=== PATIENT | female | born 1970 | race Caucasian/White ===

== ENCOUNTER 2017-04-14 05:29 | Outpatient (CLI) | payer BC ==
[~2017-04-14] VITALS: Ht 154.9 cm; Wt 82.1 kg
[~2017-04-14 05:29] MED LIST: GLYB5TAB6 PO; LEVO112C2 PO; LOSA1TAB20 PO; LOVA10TA PO; METF1000 PO; OMEP20CA12 PO
[2017-04-14] MEDS ORDERED: BENZ100C23 PO (12:17)
[2017-04-14] MEDS ORDERED: FLUO20CA25 PO (12:17)
[2017-04-14] MEDS ORDERED: CYCL10TA9 PO (12:17)
[2017-04-14] MEDS ORDERED: PIOG30TA26 PO (12:17)
[2017-04-14] MEDS ORDERED: INSU100I29 SQ (12:17)
[2017-04-14] MEDS ORDERED: MELO15TA39 PO (12:17)
== END 2017-04-14 12:17 ==
LOC: PREOP 05:29
PROVIDERS: ATTEND Surgery
DX: Z01.818 Encounter for other preprocedural examination (principal); D64.9 Anemia, unspecified

== ENCOUNTER 2017-04-18 07:08 | Day surgery (SDC) | payer BC ==
[~2017-04-18] VITALS: Ht 154.9 cm; Wt 82.1 kg
[~2017-04-18 07:08] MED LIST changes: +BENZ100C23 PO; +CYCL10TA9 PO; +FLUO20CA25 PO; +INSU100I29 SQ; +MELO15TA39 PO; +PIOG30TA26 PO
[2017-04-18] MEDS ORDERED: LACTATED RINGERS 1,000 ML IV STA (07:16)
[2017-04-18 07:24] VITALS: BP 128/90
[2017-04-18] MEDS ORDERED: LACTATED RINGERS 1,000 ML IV ONE (07:25)
[2017-04-18] MEDS ORDERED: HURRICAINE EXT TUBE (BENZOCAINE) XX PRN (07:30)
[2017-04-18] MEDS ORDERED: INDO50CA PO (07:44)
[2017-04-18] MEDS ORDERED: NAPR-1033 PO (07:44)
[2017-04-18] MEDS ORDERED: PROPOFOL INJECTION 0 ML IV ONE (07:45)
[2017-04-18] MEDS ORDERED: LORA10TA7 PO (07:45)
[2017-04-18] MEDS ORDERED: MIDAZOLAM 2 MG/2 ML (VERSED) VIAL ONE (07:46)
[2017-04-18] MEDS ORDERED: HURRICAINE EXT TUBE (BENZOCAINE) ONE (08:10)
[2017-04-18] MEDS ORDERED: PROPOFOL INJECTION 50 ML IV ONE (08:22)
--- NOTE | 2017-04-18 08:51 | Progress Note-Post Operative ---
Post-Operative Progess Note Surgeon (s)/Computer Systems Security Administrator (s) Surgeon CARLEY EAST DO Computer Systems Security Administrator: na Pre-Operative Diagnosis gerd screening colonoscopy Post-Operative Diagnosis gastritis, small hiatal hernia, normal colon Procedure & Operative Findings Date of Procedure 04/18/17 Procedure Performed/Findings egd c biopsies, colonoscopy Anesthesia Type per [facility] Estimated Blood Loss Estimated blood loss (mL): none Specimens/Packing Specimens Removed antrum, ge junction CARLEY EAST DO Apr 18, 2017 8:50 am
[2017-04-18 09:00] VITALS: BP 128/86
[2017-04-18] MEDS ORDERED: PANT40TA2 PO (09:03)
[2017-04-18] MEDS ORDERED: SUCR1TAB36 PO (09:03)
--- NOTE | 2017-04-18 09:04 | Discharge Inst-Simple/Standard ---
Discharge Inst-Standard Discharge Medications New, Converted or Re-Newed RX: RX on Chart Patient Instructions/Follow Up Plan of Care/Instructions/FU: Take medication as directed. Follow up with Dr. Reardon in 2 weeks Activity as Tolerated: Yes Discharge Diet: No Restrictions GISELE KNOX APRN Apr 18, 2017 09:04
[2017-04-18 09:29] VITALS: BP 127/70
[2017-04-18 09:39] VITALS: BP 127/70
--- OUTSIDE RECORDS SUMMARY | 2017-04-18 19:26 | XMS REPORT ---
Author Author LIZZETTE BOLAND [facility] Address [address] [place] [address] Care Team Providers Care Lcpc Name Role Phone LIZZETTE BOLAND Unavailable PROBLEMS Type Condition ICD9-CM Code [id number] Code Onset Dates Condition Status SNOMED Code Problem Neuropathy G62.9 Active 361592554 Problem Mild intermittent asthma without complication J45.20 Active 246079909 Problem Insomnia G47.00 Active 150341832 Assessment Onychia of toe, left L03.032 Jun, Active 688062033 Assessment Type 2 diabetes mellitus without complication E11.9 Jun, Active 37263015 Problem Mixed hyperlipidemia E78.2 Active 782947853 Problem Dysthymia F34.1 Active 91592941 Problem Type 2 diabetes mellitus without complication E11.9 Active 31164765 Problem Essential hypertension I10 Active 48571671 Problem Gastroesophageal reflux disease without esophagitis K21.9 Active 772676493 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 Active 647695820 Problem Acquired hypothyroidism E03.9 Active 967890051 ALLERGIES Substance Reaction Event Type Date Status Victoza Unknown Drug Allergy Jun, Active Benazepril HCl Unknown Drug Allergy Jun, Active SOCIAL HISTORY No smoking Hx information available PLAN OF CARE VITAL SIGNS Height 61 in 2016-06-21 Weight 174.3 lbs 2016-06-21 Heart Rate 64 bpm 2016-06-21 Respiratory Rate 20 2016-06-21 BMI 32.93 kg/m2 2016-06-21 Blood pressure systolic 118 mmHg 2016-06-21 Blood pressure diastolic 86 mmHg 2016-06-21 MEDICATIONS Medication Instructions Dosage Frequency Start Date End Date Duration Status Metformin HCl 1000 MG Orally Twice a day 1 tablet with meals 12h 30 Active Loratadine 10 mg take 1 tablet by Oral route 1 time per day take at hs Active Lovastatin 10 MG Orally Once a day TAKE ONE TABLET BY MOUTH DAILY 24h 30 Active Losartan Potassium-HCTZ 50-12.5 MG Orally Once a day 1 tablet 24h Active Loratadine 10 MG TAKE ONE TABLET BY MOUTH ONCE DAILY AT BEDTIME 30 Active Levothyroxine Sodium 112 MCG Orally Once a day 1 tablet 24h 30 Active Omeprazole 20 MG Orally Once a day TAKE ONE CAPSULE BY MOUTH TWICE DAILY BEFORE A MEAL 24h 30 Active Test strips Test Strips Active Fluoxetine HCl 20 mg Orally Once a day 1 capsule in the morning 24h 30 day(s) Active ProAir HFA 108 (90 Base) MCG/ACT Inhalation PRN 2 puffs as needed 07 days Active Levemir FlexTouch 100 UNIT/ML Subcutaneous Once a day 27 units 24h Active GlyBURIDE 5 MG TAKE TWO TABLETS BY MOUTH TWICE DAILY BEFORE MEALS 30 Active RESULTS Name Result Date Reference Range A1C (IN HOUSE) 2016-06-21 A1C IN HOUSE 7.8 4.3 - 5.6 % Previous A1c 9.2 Lot [id number] Exp date 04/2018 TSH 2016-06-21 TSH 3.210 0.450-4.500 MICROALBUMIN/CREATININE RATIO, URINE 2016-06-21 Creatinine, Urine 41.4 Not Estab. Microalbumin, Urine <3.0 Not Estab. Microalb/Creat Ratio <7.2 0.0-30.0 LIPID PANEL 2016-06-21 Cholesterol, Total 186 100-199 Triglycerides 231 0-149 HDL Cholesterol 47 >39 VLDL Cholesterol William 46 5-40 LDL Cholesterol Calc 93 0-99 CMP 2016-06-21 Glucose, Serum 99 65-99 BUN 12 6-24 Creatinine, Serum 0.62 0.57-1.00 eGFR If NonAfricn Am 108 >59 eGFR If Africn Am 125 >59 BUN/Creatinine Ratio 19 9-23 Sodium, Serum 138 134-144 Potassium, Serum 4.6 3.5-5.2 Chloride, Serum 96 97-108 Carbon Dioxide, Total 24 18-29 Calcium, Serum 9.6 8.7-10.2 Protein, Total, Serum 6.7 6.0-8.5 Albumin, Serum 4.4 3.5-5.5 Globulin, Total 2.3 1.5-4.5 A/G Ratio 1.9 1.1-2.5 Bilirubin, Total 0.2 0.0-1.2 Alkaline Phosphatase, S 51 39-117 AST (SGOT) 22 0-40 ALT (SGPT) 29 0-32 MICROALBUMIN, URINE (IN HOUSE) 2016-06-21 MICROALBUMIN ABNORMAL Lot # [id number] Exp date May 2017 Clarity cloudy Color light yellow ALB 30 CRE 50 A:C (IN HOUSE) 30-300 Control normal Control abnormal Lot # [id number] Exp date Jun 2016 PROCEDURES Procedure Date Ordered Related Diagnosis Body Site GLYCATED HEMOGLOBIN TEST Jun 21, 2016 MICROALBUMIN, SEMIQUANT Jun 21, 2016 MICROALBUMIN, QUANTITATIVE Jun 21, 2016 ASSAY OF URINE CREATININE Jun 21, 2016 Office Visit, Est Pt., Level 4 Jun 21, 2016 COMPREHEN METABOLIC PANEL Jun 21, 2016 ASSAY THYROID STIM HORMONE Jun 21, 2016 VENIPUNCT, ROUTINE* Jun 21, 2016 LIPID PANEL Jun 21, 2016 IMMUNIZATIONS No Known Immunizations
--- OUTSIDE RECORDS SUMMARY | 2017-04-18 19:26 | XMS REPORT ---
Author Author LIZZETTE BOLAND Organization e[employer] Address Unknown Phone Unavailable Care Team Providers Care Garnisher Name Role Phone LIZZETTE BOLAND CP Unavailable Allergies No Known Allergies Problems Problem Type Condition Code Onset Dates Condition Status Problem Mixed hyperlipidemia E78.2 Active Problem Insomnia G47.00 Active Problem Neuropathy G62.9 Active Problem Type 2 diabetes mellitus without complication E11.9 Active Problem terminal worker current use of insulin Z79.4 Active Problem Dysthymia F34.1 Active Problem Gastroesophageal reflux disease without esophagitis K21.9 Active Problem Mild intermittent asthma without complication J45.20 Active Problem Acquired hypothyroidism E03.9 Active Problem Essential hypertension I10 Active Medications Medication Code System Code Instructions Start Date End Date Status Dosage GlyBURIDE [facility] [address]-17 5 mg TAKE TWO TABLETS BY MOUTH TWICE DAILY BEFORE MEALS Results No Known Results Summary Purpose eClinicalWorks Submission
--- OUTSIDE RECORDS SUMMARY | 2017-04-18 19:26 | XMS REPORT ---
Author Author LIZZETTE BOLAND [facility] eClinicalWorks Address Unknown Phone Unavailable Care Team Providers Care Meat Supervisor Name Role Phone LIZZETTE BOLAND CP Unavailable Allergies, Adverse Reactions, Alerts Substance Reaction Event Type Victoza Info Not Available Drug Allergy Benazepril HCl Info Not Available Drug Allergy Problems Problem Type Condition ICD-9 Code Onset Dates Condition Status Problem Screening examination for pulmonary tuberculosis V74.1 Active Problem Asthma, unspecified, unspecified status 493.90 Active Problem Insomnia, unspecified 780.52 Active Problem Influenza with other respiratory manifestations 487.1 Active Problem Acute bronchitis 466.0 Active Problem Hypertension 997.91 Active Problem Dermatophytosis of nail 110.1 Active Problem Essential hypertension, benign 401.1 Active Problem Unspecified hypothyroidism 244.9 Active Problem Diabetes mellitus without mention of complication, type II or unspecified type, not stated as uncontrolled 250.00 Active Problem Diabetes mellitus without mention of complication, type II or unspecified type, uncontrolled 250.02 Active Problem Screening for hypertension V81.1 Active Assessment Bronchitis 490 Active Problem Esophageal reflux 530.81 Active Problem Acute upper respiratory infections of unspecified site 465.9 Active Problem Unspecified hereditary and idiopathic peripheral neuropathy 356.9 Active Medications Medication Code System Code Instructions Start Date End Date Status Dosage ProAir HFA [facility] [address]-76 108 (90 Base) MCG/ACT Inhalation 3 times a day Jun 25, 2015 2 puffs as needed Levothyroxine Sodium [facility] [address]-48 112 MCG Orally Once a day 1 tablet Omeprazole [facility] 54740273325 20 MG TAKE ONE CAPSULE BY MOUTH TWICE DAILY BEFORE A MEAL GlyBURIDE [facility] 53210747074 5 MG TAKE TWO TABLETS BY MOUTH TWICE DAILY BEFORE MEALS Levemir FlexTouch [facility] [address]-34 100 UNIT/ML Subcutaneous Once a day 13 units Metformin HCl [facility] [address]-26 1000 MG Orally Twice a day 1 tablet with meals Hydrocodone-Acetaminophen [facility] [address]-84 7.5-325 MG Orally every 6 hrs prn 1 tablet as needed Losartan Potassium-HCTZ [facility] 52241300731 50-12.5 MG TAKE ONE TABLET BY MOUTH TWICE DAILY Levaquin [facility] [address]-72 500 MG Orally Once a day Jun 25, 2015Jun 1 tablet Lovastatin [facility] 32338922705 10 MG TAKE ONE TABLET BY MOUTH DAILY Loratadine [facility] [address]-79 10 mg Nov 28, 2014 take 1 tablet by Oral route 1 time per day take at hs Test strips NDC 0 Test Strips not defined Procedures Procedure Coding System Code Date Office Visit, Est Pt., Level 3 CPT-4 36837 Jun 25, 2015 MEASURE BLOOD OXYGEN LEVEL CPT-4 31372 Jun 25, 2015 Vital Signs Date/Time: Jun 25, 2015 Temperature 98.4 F Weight 172.9 lbs Height 61 in Oximetry 100 % Blood Pressure Diastolic 78 mmHg Blood Pressure Systolic 118 mmHg Cardiac Monitoring Heart Rate 90 bpm BMI 32.67 Index Results No Known Results Summary Purpose eClinicalWorks Submission
--- OUTSIDE RECORDS SUMMARY | 2017-04-18 19:27 | XMS REPORT ---
Author Author LIZZETTE BOLAND [facility] Address [address] [place] [address] Care Team Providers Care Economic Development Specialist Name Role Phone LIZZETTE BOLAND Unavailable PROBLEMS Type Condition ICD9-CM Code [id number] Code Onset Dates Condition Status SNOMED Code Problem Neuropathy G62.9 Active 738970101 Problem Mild intermittent asthma without complication J45.20 Active 648521155 Problem Insomnia G47.00 Active 586074214 Problem Mixed hyperlipidemia E78.2 Active 708645115 Problem Dysthymia F34.1 Active 49924186 Problem Type 2 diabetes mellitus without complication E11.9 Active 09704238 Problem Essential hypertension I10 Active 21587536 Problem Gastroesophageal reflux disease without esophagitis K21.9 Active 758721828 Problem care home current use of insulin Z79.4 Active 295623108 Problem Acquired hypothyroidism E03.9 Active 943226379 ALLERGIES No Known Allergies SOCIAL HISTORY No smoking Hx information available PLAN OF CARE VITAL SIGNS MEDICATIONS No Known Medications RESULTS No Results PROCEDURES No Known procedures IMMUNIZATIONS No Known Immunizations
--- OUTSIDE RECORDS SUMMARY | 2017-04-18 19:27 | XMS REPORT ---
Author Author LIZZETTE BOLAND [facility] eClinicalWorks Address Unknown Phone Unavailable Care Team Providers Care Road Roller Operator Hot Mix Name Role Phone LIZZETTE BOLAND CP Unavailable Allergies, Adverse Reactions, Alerts Substance Reaction Event Type Victoza Info Not Available Drug Allergy Benazepril HCl Info Not Available Drug Allergy Problems Problem Type Condition Code Onset Dates Condition Status Assessment Type 2 diabetes mellitus without complication E11.9 Active Problem Neuropathy G62.9 Active Problem Mixed hyperlipidemia E78.2 Active Problem terminal carman current use of insulin Z79.4 Active Problem Acquired hypothyroidism E03.9 Active Problem Type 2 diabetes mellitus without complication E11.9 Active Problem Mild intermittent asthma without complication J45.20 Active Problem Insomnia G47.00 Active Problem Essential hypertension I10 Active Problem Gastroesophageal reflux disease without esophagitis K21.9 Active Assessment Upper respiratory infection J06.9 Active Assessment Mixed hyperlipidemia E78.2 Active Assessment Gastroesophageal reflux disease without esophagitis K21.9 Active Assessment Essential hypertension I10 Active Assessment Neuropathy G62.9 Active Assessment Acquired hypothyroidism E03.9 Active Assessment Mild intermittent asthma without complication J45.20 Active Assessment [facility] current use of insulin Z79.4 Active Medications Medication Code System Code Instructions Start Date End Date Status Dosage ProAir HFA [facility] [address]-43 108 (90 Base) MCG/ACT Inhalation PRN Jun 25, 2015 2 puffs as needed Azithromycin [facility] [address]-57 250 MG Orally Once a day Aug 04, 2015 Aug 09, 2015 2 tablets on the first day, then 1 tablet daily for 4 days Lovastatin [facility] [address]-76 10 MG Orally Once a day TAKE ONE TABLET BY MOUTH DAILY Test strips [facility] 0 Test Strips not defined Metformin HCl [facility] [address]-29 1000 MG Orally Twice a day 1 tablet with meals Levothyroxine Sodium [facility] [address]-41 112 MCG Orally Once a day 1 tablet Loratadine [facility] [address]-26 10 mg Nov 28, 2014 take 1 tablet by Oral route 1 time per day take at hs Omeprazole [facility] [address]-79 20 MG Orally Once a day TAKE ONE CAPSULE BY MOUTH TWICE DAILY BEFORE A MEAL GlyBURIDE [facility] [address]-73 5 MG TAKE TWO TABLETS BY MOUTH TWICE DAILY BEFORE MEALS Levemir FlexTouch [facility] [address]-95 100 UNIT/ML Subcutaneous Once a day 20 units Losartan Potassium-HCTZ [facility] [address]-28 50-12.5 MG Orally Once a day 1 tablet Procedures Procedure Coding System Code Date LIPID PANEL CPT-4 48981 Aug 04, 2015 COMPREHEN METABOLIC PANEL CPT-4 95119 Aug 04, 2015 GLYCATED HEMOGLOBIN TEST CPT-4 95354 Aug 04, 2015 Office Visit, Est Pt., Level 4 CPT-4 07152 Aug 04, 2015 ASSAY THYROID STIM HORMONE CPT-4 08118 Aug 04, 2015 VENIPUNCT, ROUTINE* CPT-4 30075 Aug 04, 2015 Vital Signs Date/Time: Aug 04, 2015 Temperature 97.0 F Weight 176.1 lbs Height 61 in BMI 33.27 Index Blood Pressure Diastolic 84 mmHg Blood Pressure Systolic 122 mmHg Cardiac Monitoring Heart Rate 88 bpm Results Name Result Date Reference Range Unit Abnormality Flag A1C (IN HOUSE) Summary Purpose eClinicalWorks Submission
--- OUTSIDE RECORDS SUMMARY | 2017-04-18 19:27 | XMS REPORT ---
Author Author LIZZETTE BOLAND [facility] eClinicalWorks Address Unknown Phone Unavailable Care Team Providers Care Motor Vehicle Representative Name Role Phone LIZZETTE BOLAND CP Unavailable Allergies, Adverse Reactions, Alerts Substance Reaction Event Type Victoza Info Not Available Drug Allergy Benazepril HCl Info Not Available Drug Allergy Problems Problem Type Condition Code Onset Dates Condition Status Problem Mixed hyperlipidemia E78.2 Active Problem Insomnia G47.00 Active Problem Neuropathy G62.9 Active Assessment Upper respiratory tract infection, unspecified type J06.9 Active Assessment Chills with fever R50.9 Active Problem Type 2 diabetes mellitus without complication E11.9 Active Problem [facility] current use of insulin Z79.4 Active Problem Dysthymia F34.1 Active Problem Gastroesophageal reflux disease without esophagitis K21.9 Active Problem Mild intermittent asthma without complication J45.20 Active Problem Acquired hypothyroidism E03.9 Active Problem Essential hypertension I10 Active Medications Medication Code System Code Instructions Start Date End Date Status Dosage Augmentin [facility] [address]-84 875-125 MG Orally every 12 hrs Aug 24, 2016 Sep 03, 2016 1 tablet Levemir FlexTouch [facility] [address]-69 100 UNIT/ML Subcutaneous Once a day 27 units Losartan Potassium-HCTZ [facility] 67361276250 50-12.5 MG Orally 2 times a day 1 tablet Omeprazole [facility] [address]-35 20 MG Orally Once a day TAKE ONE CAPSULE BY MOUTH TWICE DAILY BEFORE A MEAL Lovastatin [facility] [address]-26 10 MG Orally Once a day TAKE ONE TABLET BY MOUTH DAILY Fluoxetine HCl [facility] [address]-95 20 mg Orally Once a day 1 capsule in the morning GlyBURIDE [facility] [address]-99 5 MG TAKE TWO TABLETS BY MOUTH TWICE DAILY BEFORE MEALS Loratadine [facility] [address]-15 10 MG TAKE ONE TABLET BY MOUTH AT BEDTIME Test strips NDC 0 Test Strips not defined Levothyroxine Sodium [facility] [address]-70 112 MCG Orally Once a day 1 tablet ProAir HFA [facility] [address]-34 108 (90 Base) MCG/ACT Inhalation PRN 2 puffs as needed Metformin HCl [facility] [address]-73 1000 MG Orally Twice a day 1 tablet with meals Procedures Procedure Coding System Code Date Office Visit, Est Pt., Level 3 CPT-4 94165 Aug 24, 2016 INFLUENZA ASSAY W/OPTIC CPT-4 46775 Aug 24, 2016 Vital Signs Date/Time: Aug 24, 2016 Cardiac Monitoring Heart Rate 66 bpm Weight 167.7 lbs Height 61 in BMI 31.68 Index Blood Pressure Diastolic 78 mmHg Blood Pressure Systolic 122 mmHg Results Name Result Date Reference Range Unit Abnormality Flag INFLUENZA A & B (IN HOUSE) ----Exp date [id number] ----INFLUENZA A Negative [id number] ----INFLUENZA B Negative [id number] ----Control + [id number] ----Lot # [id number] Summary Purpose eClinicalWorks Submission
--- OUTSIDE RECORDS SUMMARY | 2017-04-18 19:27 | XMS REPORT ---
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
--- OUTSIDE RECORDS SUMMARY | 2017-04-18 19:27 | XMS REPORT ---
Author Author LIZZETTE BOLAND Organization [employer] Address Unknown Phone Unavailable Care Team Providers Care Admissions Specialist Name Role Phone LIZZETTE BOLAND CP Unavailable Allergies No Known Allergies Problems Problem Type Condition Code Onset Dates Condition Status Problem Mixed hyperlipidemia E78.2 Active Problem Insomnia G47.00 Active Problem Neuropathy G62.9 Active Problem Type 2 diabetes mellitus without complication E11.9 Active Problem salvage determiner current use of insulin Z79.4 Active Problem Dysthymia F34.1 Active Problem Gastroesophageal reflux disease without esophagitis K21.9 Active Problem Mild intermittent asthma without complication J45.20 Active Problem Acquired hypothyroidism E03.9 Active Problem Essential hypertension I10 Active Medications No Known Medications Results No Known Results Summary Purpose eClinicalWorks Submission
--- OUTSIDE RECORDS SUMMARY | 2017-04-18 19:27 | XMS REPORT | Continuity of Care Document ---
Author Author [facility] Address Unknown Phone Unavailable Allergies Active Description Code Type Severity Reaction Onset Reported/Identified Relationship to Patient Clinical Status Yes benazepril 10 mg tablet Drug Allergy 12/25/2012 Yes benazepril 10 mg tablet Drug Allergy N/A N/A 12/25/2012 Yes Victoza 3-Asa 0.6 mg/0.1 mL (18 mg/3 mL) pen injector Drug Allergy N/A N/A 07/31/2014 Yes No Known Drug Allergies [id number] Drug Allergy Unknown N/ A 05/03/2015 Medications Problems Date Dx Coded Attending Type Code Diagnosis Diagnosed By 08/15/2012 GALE RAI MD 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 08/15/2012 GALE RAI MD 244.9 HYPOTHYROIDISM 08/15/2012 GALE RAI MD 250.00 DIABETES MELLITUS TYPE 2 - UNCOMPLICATED, CONTROLLED 08/15/2012 GALE RAI MD 401.1 ESSENTIAL HYPERTENSION BENIGN 08/15/2012 GALE RAI MD 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 08/15/2012 GALE RAI MD 244.9 HYPOTHYROIDISM 08/15/2012 GALE RAI MD 250.00 DIABETES MELLITUS TYPE 2 - UNCOMPLICATED, CONTROLLED 08/15/2012 GALE RAI MD 401.1 ESSENTIAL HYPERTENSION BENIGN 08/15/2012 CHENTE PEREZ MD 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 08/15/2012 CHENTE PEREZ MD 244.9 HYPOTHYROIDISM 08/15/2012 CHENTE PEREZ MD 250.00 DIABETES MELLITUS TYPE 2 - UNCOMPLICATED, CONTROLLED 08/15/2012 CHENTE PEREZ MD A 401.1 ESSENTIAL HYPERTENSION BENIGN 08/15/2012 ASHOK BUCIO MD 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 08/15/2012 ASHOK BUCIO MD 244.9 HYPOTHYROIDISM 08/15/2012 ASHOK BUCIO MD 250.00 DIABETES MELLITUS TYPE 2 - UNCOMPLICATED, CONTROLLED 08/15/2012 ASHOK BUCIO MD 401.1 ESSENTIAL HYPERTENSION BENIGN 08/15/2012 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 08/15/2012 244.9 HYPOTHYROIDISM 08/15/2012 250.00 DIABETES MELLITUS TYPE 2 - UNCOMPLICATED, CONTROLLED 08/15/2012 401.1 ESSENTIAL HYPERTENSION BENIGN 08/15/2012 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 08/15/2012 244.9 HYPOTHYROIDISM 08/15/2012 250.00 DIABETES MELLITUS TYPE 2 - UNCOMPLICATED, CONTROLLED 08/15/2012 401.1 ESSENTIAL HYPERTENSION BENIGN 08/15/2012 ALEKSANDR FUENTES APRNNDA S 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 08/15/2012 ALEKSANDR FUENTES APRNNDA S 244.9 HYPOTHYROIDISM 08/15/2012 ALEKSANDR FUENTES APRNNDA S 250.00 DIABETES MELLITUS TYPE 2 - UNCOMPLICATED, CONTROLLED 08/15/2012 ALEKSANDR FUENTES APRNNDA S 401.1 ESSENTIAL HYPERTENSION BENIGN 08/15/2012 ASHOK BUCIO MD 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 08/15/2012 ASHOK BUCIO MD 244.9 HYPOTHYROIDISM 08/15/2012 ASHOK BUCIO MD 250.00 DIABETES MELLITUS TYPE 2 - UNCOMPLICATED, CONTROLLED 08/15/2012 ASHOK BUCIO MD 401.1 ESSENTIAL HYPERTENSION BENIGN 08/15/2012 GALE RAI MD 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 08/15/2012 GALE RAI MD 244.9 HYPOTHYROIDISM 08/15/2012 GALE RAI MD 250.00 DIABETES MELLITUS TYPE 2 - UNCOMPLICATED, CONTROLLED 08/15/2012 GALE RAI MD 401.1 ESSENTIAL HYPERTENSION BENIGN 08/15/2012 SHANELLE AMBRIZ MD 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 08/15/2012 SHANELLE AMBRIZ MD 244.9 HYPOTHYROIDISM 08/15/2012 SHANELLE AMBRIZ MD 250.00 DIABETES MELLITUS TYPE 2 - UNCOMPLICATED, CONTROLLED 08/15/2012 SHANELLE AMBRIZ MD 401.1 ESSENTIAL HYPERTENSION BENIGN 08/15/2012 DE LA CRUZ DO, DEMAR K 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 08/15/2012 DE LA CRUZ DO, DEMAR K 244.9 HYPOTHYROIDISM 08/15/2012 DE LA CRUZ DO, DEMAR K 250.00 DIABETES MELLITUS TYPE 2 - UNCOMPLICATED, CONTROLLED 08/15/2012 DE LA CRUZ DO, DEMAR K 401.1 ESSENTIAL HYPERTENSION BENIGN 08/15/2012 DE LA CRUZ DO, DEMAR K 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 08/15/2012 DE LA CRUZ DO, DEMAR K 244.9 HYPOTHYROIDISM 08/15/2012 DE LA CRUZ DO, DEMAR K 250.00 DIABETES MELLITUS TYPE 2 - UNCOMPLICATED, CONTROLLED 08/15/2012 DE LA CRUZ DO, DEMAR K 401.1 ESSENTIAL HYPERTENSION BENIGN 08/15/2012 DE LA CRUZ DO, DEMAR K 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 08/15/2012 DE LA CRUZ DO, DEMAR K 244.9 HYPOTHYROIDISM 08/15/2012 DE LA CRUZ DO, DEMAR K 250.00 DIABETES MELLITUS TYPE 2 - UNCOMPLICATED, CONTROLLED 08/15/2012 DE LA CRUZ DO, DEMAR K 401.1 ESSENTIAL HYPERTENSION BENIGN 08/15/2012 MADL AUDIO INSTALLER, LIZZETTE L 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 08/15/2012 MADL AUDIO INSTALLER, LIZZETTE L 244.9 HYPOTHYROIDISM 08/15/2012 MADL AUDIO INSTALLER, LIZZETTE L 250.00 DIABETES MELLITUS TYPE 2 - UNCOMPLICATED, CONTROLLED 08/15/2012 MADL AUDIO INSTALLER, LIZZETTE L 401.1 ESSENTIAL HYPERTENSION BENIGN 08/15/2012 MADL AUDIO INSTALLER, LIZZETTE L 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 08/15/2012 MADL AUDIO INSTALLER, LIZZETTE L 244.9 HYPOTHYROIDISM 08/15/2012 MADL AUDIO INSTALLER, LIZZETTE L 250.00 DIABETES MELLITUS TYPE 2 - UNCOMPLICATED, CONTROLLED 08/15/2012 MADL AUDIO INSTALLER, LIZZETTE L 401.1 ESSENTIAL HYPERTENSION BENIGN 08/15/2012 MADL AUDIO INSTALLER, LIZZETTE L 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 08/15/2012 MADL AUDIO INSTALLER, LIZZETTE L 244.9 HYPOTHYROIDISM 08/15/2012 MADL AUDIO INSTALLER, LIZZETTE L 250.00 DIABETES MELLITUS TYPE 2 - UNCOMPLICATED, CONTROLLED 08/15/2012 MADL AUDIO INSTALLER, LIZZETTE L 401.1 ESSENTIAL HYPERTENSION BENIGN 08/15/2012 DE LA CRUZ DO, DEMAR K 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 08/15/2012 DE LA CRUZ DO, DEMAR K 244.9 HYPOTHYROIDISM 08/15/2012 DE LA CRUZ DO, DEMAR K 250.00 DIABETES MELLITUS TYPE 2 - UNCOMPLICATED, CONTROLLED 08/15/2012 DE LA CRUZ DO, DEMAR K 401.1 ESSENTIAL HYPERTENSION BENIGN 08/15/2012 MADL AUDIO INSTALLER, LIZZETTE L 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 08/15/2012 MADL AUDIO INSTALLER, LIZZETTE L 244.9 HYPOTHYROIDISM 08/15/2012 MADL AUDIO INSTALLER, LIZZETTE L 250.00 DIABETES MELLITUS TYPE 2 - UNCOMPLICATED, CONTROLLED 08/15/2012 MADL AUDIO INSTALLER, LIZZETTE L 401.1 ESSENTIAL HYPERTENSION BENIGN 01/25/2013 356.9 POLYNEUROPATHY 01/25/2013 356.9 POLYNEUROPATHY 01/25/2013 ANA FUENTES APRN S 356.9 POLYNEUROPATHY 01/25/2013 ASHOK BUCIO MD 356.9 POLYNEUROPATHY 01/25/2013 GALE RAI MD 356.9 POLYNEUROPATHY 01/25/2013 PB COLMENARES, SHANELLE Zurita 356.9 POLYNEUROPATHY 01/25/2013 DE LA CRUZ DO, DEMAR K 356.9 POLYNEUROPATHY 01/25/2013 DE LA CRUZ DO, DEMAR K 356.9 POLYNEUROPATHY 01/25/2013 DE LA CRUZ DO, DEMAR K 356.9 POLYNEUROPATHY 01/25/2013 MADL AUDIO INSTALLER, LIZZETTE L 356.9 POLYNEUROPATHY 01/25/2013 MADL AUDIO INSTALLER, LIZZETTE L 356.9 POLYNEUROPATHY 01/25/2013 MADL AUDIO INSTALLER, LIZZETTE L 356.9 POLYNEUROPATHY 01/25/2013 DE LA CRUZ DO, DEMAR K 356.9 POLYNEUROPATHY 01/25/2013 MADL AUDIO INSTALLER, LIZZETTE L 356.9 POLYNEUROPATHY 02/09/2013 466.0 BRONCHITIS, ACUTE 02/09/2013 ALEKSANDR FUENTES APRNNDA S 466.0 BRONCHITIS, ACUTE 02/09/2013 ASHOK BUCIO MD 466.0 BRONCHITIS, ACUTE 02/09/2013 GALE RAI MD 466.0 BRONCHITIS, ACUTE 02/09/2013 PB COLMENARES, SHANELLE N 466.0 BRONCHITIS, ACUTE 02/09/2013 DE LA CRUZ DO, DEMAR K 466.0 BRONCHITIS, ACUTE 02/09/2013 DE LA CRUZ DO, DEMAR K 466.0 BRONCHITIS, ACUTE 02/09/2013 DE LA CRUZ DO, DEMAR K 466.0 BRONCHITIS, ACUTE 02/09/2013 MADL AUDIO INSTALLER, LIZZETTE L 466.0 BRONCHITIS, ACUTE 02/09/2013 MADL AUDIO INSTALLER, LIZZETTE L 466.0 BRONCHITIS, ACUTE 02/09/2013 MADL AUDIO INSTALLER, LIZZETTE L 466.0 BRONCHITIS, ACUTE 02/09/2013 DE LA CRUZ DO, DEMAR K 466.0 BRONCHITIS, ACUTE 02/09/2013 MADL AUDIO INSTALLER, LIZZETTE L 466.0 BRONCHITIS, ACUTE 07/16/2013 ASHOK BUCIO MD 493.90 REACTIVE AIRWAY DISEASE 07/16/2013 ASHOK BUCIO MD 780.52 insomnia 07/16/2013 GALE RAI MD 493.90 REACTIVE AIRWAY DISEASE 07/16/2013 GALE RAI MD 780.52 insomnia 07/16/2013 SHANELLE AMBRIZ MD 493.90 REACTIVE AIRWAY DISEASE 07/16/2013 SHANELLE AMBRIZ MD 780.52 insomnia 07/16/2013 DE LA CRUZ DO, DEMAR K 493.90 REACTIVE AIRWAY DISEASE 07/16/2013 DE LA CRUZ DO, DEMAR K 780.52 insomnia 07/16/2013 DE LA CRUZ DO, DEMAR K 493.90 REACTIVE AIRWAY DISEASE 07/16/2013 DE LA CRUZ DO, DEMAR K 780.52 insomnia 07/16/2013 DE LA CRUZ DO, DEMAR K 493.90 REACTIVE AIRWAY DISEASE 07/16/2013 DE LA CRUZ DO, DEMAR K 780.52 insomnia 07/16/2013 MADL AUDIO INSTALLER, LIZZETTE L 493.90 REACTIVE AIRWAY DISEASE 07/16/2013 MADL AUDIO INSTALLER, LIZZETTE L 780.52 insomnia 07/16/2013 MADL AUDIO INSTALLER, LIZZETTE L 493.90 REACTIVE AIRWAY DISEASE 07/16/2013 MADL AUDIO INSTALLER, LIZZETTE L 780.52 insomnia 07/16/2013 MADL AUDIO INSTALLER, LIZZETTE L 493.90 REACTIVE AIRWAY DISEASE 07/16/2013 MADL AUDIO INSTALLER, LIZZETTE L 780.52 insomnia 07/16/2013 DE LA CRUZ DO, DEMAR K 493.90 REACTIVE AIRWAY DISEASE 07/16/2013 DE LA CRUZ DO DEMAR K 780.52 insomnia 07/16/2013 MADL AUDIO INSTALLER, LIZZETTE L 493.90 REACTIVE AIRWAY DISEASE 07/16/2013 MADL AUDIO INSTALLER, LIZZETTE L 780.52 insomnia 10/10/2013 FREDI COLMENARES, GALE 487.1 INFLUENZA WITH OTHER RESPIRATORY MANIFESTATIONS 10/10/2013 SHANELLE AMBRIZ MD 487.1 INFLUENZA WITH OTHER RESPIRATORY MANIFESTATIONS 10/10/2013 GUNJAN DE LA CRUZ DOA K 487.1 INFLUENZA WITH OTHER RESPIRATORY MANIFESTATIONS 10/10/2013 DE LA CRUZ DO DEMAR K 487.1 INFLUENZA WITH OTHER RESPIRATORY MANIFESTATIONS 10/10/2013 DE LA CRUZ DO DEMAR K 487.1 INFLUENZA WITH OTHER RESPIRATORY MANIFESTATIONS 10/10/2013 MADL AUDIO INSTALLER, LIZZETTE L 487.1 INFLUENZA WITH OTHER RESPIRATORY MANIFESTATIONS 10/10/2013 MADL AUDIO INSTALLER, LIZZETTE L 487.1 INFLUENZA WITH OTHER RESPIRATORY MANIFESTATIONS 10/10/2013 MADL AUDIO INSTALLER, LIZZETTE L 487.1 INFLUENZA WITH OTHER RESPIRATORY MANIFESTATIONS 10/10/2013 DE LA CRUZ DOGUNJANA K 487.1 INFLUENZA WITH OTHER RESPIRATORY MANIFESTATIONS 10/10/2013 MADL AUDIO INSTALLER, LIZZETTE L 487.1 INFLUENZA WITH OTHER RESPIRATORY MANIFESTATIONS 01/02/2014 SHANELLE AMBRIZ MD N 465.9 UPPER RESPIRATORY INFECTION 01/02/2014 GUNJAN DE LA CRUZ DOA K 465.9 UPPER RESPIRATORY INFECTION 01/02/2014 DE LA CRUZ DO DEMAR K 465.9 UPPER RESPIRATORY INFECTION 01/02/2014 JONO IRVING DEMAR K 465.9 UPPER RESPIRATORY INFECTION 01/02/2014 MADL AUDIO INSTALLER, LIZZETTE L 465.9 UPPER RESPIRATORY INFECTION 01/02/2014 MADL AUDIO INSTALLER, LIZZETTE L 465.9 UPPER RESPIRATORY INFECTION 01/02/2014 MADL AUDIO INSTALLER, LIZZETTE L 465.9 UPPER RESPIRATORY INFECTION 01/02/2014 DE LA CRUZ DO DEMAR K 465.9 UPPER RESPIRATORY INFECTION 01/02/2014 MADL AUDIO INSTALLER, LIZZETTE L 465.9 UPPER RESPIRATORY INFECTION 01/22/2014 DE LA CRUZ DO DEMAR K V74.1 TB SCREENING 01/22/2014 DE LA CRUZ GUNJAN IRVINGA K V74.1 TB SCREENING 01/22/2014 DE LA CRUZ DO DEMAR K V74.1 TB SCREENING 01/22/2014 MADL AUDIO INSTALLER, LIZZETTE L V74.1 TB SCREENING 01/22/2014 MADL AUDIO INSTALLER, LIZZETTE L V74.1 TB SCREENING 01/22/2014 MADL AUDIO INSTALLER, LIZZETTE L V74.1 TB SCREENING 01/22/2014 DEMAR DE LA CRUZ DO K V74.1 TB SCREENING 01/22/2014 MADL AUDIO INSTALLER, LIZZETTE L V74.1 TB SCREENING 01/29/2014 DEMAR DE LA CRUZ DO K V81.1 HYPERTENSION SCREENING 01/29/2014 MADL AUDIO INSTALLER, LIZZETTE L V81.1 HYPERTENSION SCREENING 01/29/2014 MADL AUDIO INSTALLER, ILZZETTE L V81.1 HYPERTENSION SCREENING 01/29/2014 MADL AUDIO INSTALLER, LIZZETTE L V81.1 HYPERTENSION SCREENING 01/29/2014 DEMAR DE LA CRUZ DO K V81.1 HYPERTENSION SCREENING 01/29/2014 MADL AUDIO INSTALLER, LIZZETTE L V81.1 HYPERTENSION SCREENING 07/31/2014 MADL AUDIO INSTALLER, LIZZETTE L 250.02 DIABETES MELLITUS WITHOUT MENTION OF COMPLICATION TYPE II OR UNSPECIFIED TYPE UNCONTROLLED 07/31/2014 MADL AUDIO INSTALLER, LIZZETTE L 250.02 DIABETES MELLITUS WITHOUT MENTION OF COMPLICATION TYPE II OR UNSPECIFIED TYPE UNCONTROLLED 07/31/2014 DEMAR DE LA CRUZ DO K 250.02 DIABETES MELLITUS WITHOUT MENTION OF COMPLICATION TYPE II OR UNSPECIFIED TYPE UNCONTROLLED 07/31/2014 MADL AUDIO INSTALLER, LIZZETTE L 250.02 DIABETES MELLITUS WITHOUT MENTION OF COMPLICATION TYPE II OR UNSPECIFIED TYPE UNCONTROLLED 11/28/2014 GUNJAN DE LA CRUZ DOA K 530.81 GERD 11/28/2014 MADL AUDIO INSTALLER, LIZZETTE L 530.81 GERD 01/27/2015 MADL AUDIO INSTALLER, LIZZETTE L 729.1 MYALGIA AND MYOSITIS UNSPECIFIED 05/04/2015 PAM COLMENARES, VEDA Santos Ot 787.01 NAUSEA WITH VOMITING 05/04/2015 PAM COLMENARES, VEAD Santos Ot 789.00 ABDOMINAL PAIN, UNSPECIFIED SITE 05/04/2015 PAM COLMENARES, VEDA Santos Ot 790.5 ABN SERUM ENZY LEVEL NEC 05/25/2015 KYAKARMAA L MEDICAL STAFF CREDENTIALING COORDINATOR Ot 571.8 05/25/2015 MADLLIZZETTE L MEDICAL STAFF CREDENTIALING COORDINATOR Ot 789.00 06/05/2015 MADL, LIZZETTE L MEDICAL STAFF CREDENTIALING COORDINATOR Ot 571.8 06/05/2015 MADL, LIZZETTE L MEDICAL STAFF CREDENTIALING COORDINATOR Ot 789.00 07/16/2015 MADL, LIZZETTE L MEDICAL STAFF CREDENTIALING COORDINATOR Ot 571.8 07/16/2015 MADL, LIZZETTE L MEDICAL STAFF CREDENTIALING COORDINATOR Ot 789.00 07/20/2015 MADL, LIZZETTE L MEDICAL STAFF CREDENTIALING COORDINATOR Ot 571.8 07/20/2015 MADL, LIZZETTE L MEDICAL STAFF CREDENTIALING COORDINATOR Ot 789.00 07/21/2015 MADL, LIZZETTE L MEDICAL STAFF CREDENTIALING COORDINATOR Ot 571.8 07/21/2015 MADL, LIZZETTE L MEDICAL STAFF CREDENTIALING COORDINATOR Ot 789.00 08/05/2015 MADLLIZZETTE MEDICAL STAFF CREDENTIALING COORDINATOR Ot R10.9 04/12/2017 MADLLIZZETTE L MEDICAL STAFF CREDENTIALING COORDINATOR Ot 571.8 CHRONIC LIVER DIS NEC 04/12/2017 MADLLIZZETTE L MEDICAL STAFF CREDENTIALING COORDINATOR Ot 789.00 ABDOMINAL PAIN, UNSPECIFIED SITE 04/12/2017 MADLLIZZETTE L MEDICAL STAFF CREDENTIALING COORDINATOR Ot R10.9 UNSPECIFIED ABDOMINAL PAIN 04/12/2017 MADL, LIZZETTE L MEDICAL STAFF CREDENTIALING COORDINATOR Ot 571.8 CHRONIC LIVER DIS NEC 04/12/2017 MADLLIZZETTE L MEDICAL STAFF CREDENTIALING COORDINATOR Ot 789.00 ABDOMINAL PAIN, UNSPECIFIED SITE 04/12/2017 MADL, LIZZETTE L MEDICAL STAFF CREDENTIALING COORDINATOR Ot R10.9 UNSPECIFIED ABDOMINAL PAIN Procedures Code [place] [address] ROUTINE VENIPUNCTURE 08/15/2012 38885 A1C (IN-HOUSE) 64491 UA LONG DIP 08/15 81029 MICRO ALBUMIN-IN HOUSE 08/15/2012 23888 CBC 08/15/2012 46504 CMP 08/15/2012 91318 LIPID PANEL 08/15 [id number] GFR CALC (RESULT ONLY) 08/15/2012 44787 TSH 08/16/2012 17361 ROUTINE VENIPUNCTURE 12/25/2012 98134 A1C (IN-HOUSE) 22783 MICRO ALBUMIN-IN HOUSE 12/25/2012 01312 CMP 12/25/2012 69521 LIPID PANEL 12/25 [id number] GFR CALC (RESULT ONLY) 12/25/2012 95713 MICROALBUMIN Cecilia White [id number] ROUTINE VENIPUNCTURE 01/25/2013 55835 MAGNESIUM 2012 19881 BMP 01/25/2013 [id number] GFR CALC (RESULT ONLY) 01/25/2013 96178 ROUTINE VENIPUNCTURE 07/16/2013 09242 A1C (IN-HOUSE) 71472 CMP 07/16/2013 99848 MAGNESIUM 2012 [id number] GFR CALC (RESULT ONLY) 07/16/2013 31047 TSH 07/16/2013 51316 INFLUENZA A & B (IN-HOUSE) 10/10/2013 97404 TB TEST INTRADERMAL 01/22/2014 28623 ROUTINE VENIPUNCTURE 04/02/2014 85214 CMP 04/02/2014 08596 TSH 04/02/2014 53370 CBC 04/02/2014 50265 A1C (IN-HOUSE) 31810 ROUTINE VENIPUNCTURE 07/31/2014 79875 CMP 07/31/2014 04014 LIPID PANEL 07/31 76709 MICROALBUMIN 09026 TSH 07/31/2014 87135 A1C (IN-HOUSE) 99868 MICRO ALBUMIN-IN HOUSE 07/31/2014 53025 ROUTINE VENIPUNCTURE 01/27/2015 49314 A1C (IN-HOUSE) 84807 CBC 01/27/2015 20507 CMP 01/27/2015 [id number] GFR CALC (RESULT ONLY) 01/27/2015 16752 MAGNESIUM 2014 66849 TSH 01/27/2015 Results Encounters ACCT No. Visit Date/Time Discharge Status Pt. Type Provider Facility Loc./Unit Complaint [id number] 01/27/2015 14:29:00 01/27/2015 23: 59:59 CLS Outpatient LIZZETTE BOLAND APRN [id number] 11/28/2014 10:31:00 11/28/2014 23: 59:59 CLS Outpatient DEMAR DE LA CRUZ DO [id number] 09/15/2014 09:23:00 09/15/2014 23: 59:59 CLS Outpatient LIZZETTE BOLAND APRN [id number] 07/31/2014 10:25:00 07/31/2014 23: 59:59 CLS Outpatient LIZZETTE BOLAND APRN [id number] 04/02/2014 16:01:00 04/02/2014 23: 59:59 CLS Outpatient LIZZETTE BOLAND APRN [id number] 01/29/2014 15:47:00 01/29/2014 23: 59:59 CLS Outpatient DEMAR DE LA CRUZ DO [id number] 01/28/2014 11:33:00 01/28/2014 23: 59:59 CLS Outpatient DEMAR DE LA CRUZ DO [id number] 01/22/2014 13:10:00 01/22/2014 23: 59:59 CLS Outpatient DEMAR DE LA CRUZ DO [id number] 01/02/2014 14:51:00 01/02/2014 23: 59:59 CLS Outpatient SHANELLE AMBRIZ MD [id number] 10/10/2013 16:14:00 10/10/2013 23: 59:59 CLS Outpatient GALE RAI MD [id number] 07/16/2013 14:32:00 07/16/2013 23: 59:59 CLS Outpatient ASHOK BUCIO MD [id number] 06/27/2013 16:34:00 06/27/2013 23: 59:59 CLS Outpatient VONDA FUENTES APRNJodie Cruz [id number] 12/25/2012 09:39:00 12/25/2012 23: 59:59 CLS Outpatient ASHOK BUCIO MD [id number] 12/14/2012 14:39:00 12/14/2012 23: 59:59 CLS Outpatient RADHA RAMIREZ MD, CHENTE Feliciano [id number] 08/15/2012 10:57:00 08/15/2012 23: 59:59 CLS Outpatient GALE RAI MD [id number] 08/15/2012 10:57:00 08/15/2012 23: 59:59 CLS Outpatient GALE RAI MD [id number] 02/09/2013 12:38:00 Document Registration [id number] 01/25/2013 14:51:00 Document Registration
--- NOTE | 2017-04-19 11:27 | OPERATIVE REPORT ---
PROCEDURE PHYSICIAN: CARLEY EAST DATE OF PROCEDURE: 04/18/2017 PREOPERATIVE DIAGNOSES: 1. Iron deficiency anemia. 2. Gastroesophageal reflux disease. POSTOPERATIVE DIAGNOSES: 1. Gastritis. 2. Small hiatal hernia. 3. Normal colon. PROCEDURE: 1. EGD with biopsies. 2. Colonoscopy. ANESTHESIA: Per MDA. ESTIMATED BLOOD LOSS: None. COMPLICATIONS: None. INDICATIONS: The patient is a 46-year-old female with iron deficiency anemia. She also has reflux symptoms. She understands the risks and benefits of the procedures and wished to proceed with the procedures. Consent was signed on the chart. PROCEDURE: The patient was taken to the endoscopy suite, placed in left lateral recumbent position, a timeout was performed. A scope was inserted into the mouth, down esophagus, stomach and into the duodenum without difficulty. There were no polyps, masses or ulcerations within the duodenum. The scope was slowly retracted back into the stomach which was further insufflated noting some erythematous changes consistent with gastritis. Biopsy was obtained. The scope was also retroflexed noting a small hiatal hernia. No pathology noted. The scope returned to its normal position and slowly withdrawn back to the distal esophagus. Biopsy of the GE junction was obtained. Some minimal slight erythematous changes present here. The scope was then slowly retracted back until completely removed noting no other pathology. COLONOSCOPY: Digital rectal was performed. There were no palpable polyps, masses, or ulcerations. Some slight hemorrhoidal disease. The scope was inserted into the rectum, advanced all of the way to the cecum with minimal difficulty. Prep was adequate. The scope was then slowly retracted back. There were no polyps, masses, or ulcerations visualized within the cecum, ascending, transverse, descending and sigmoid colon. Once in the rectum, the scope was also retroflexed noting no other pathology. The scope was then returned to its normal position and slowly withdrawn until completely removed. The patient tolerated the procedure well without any complications. She was taken to recovery room in stable condition. RECOMMENDATIONS: The patient will be switched to Protonix 40 mg daily and Carafate 1 gram 4 times a day. She will follow-up in the office in 2 to 3 weeks to discuss pathology results. The patient will need a repeat colonoscopy in 10 years unless family history of colon cancer, which would then be 5 years. If she has any problems prior to that, she should be reevaluated at that time. Job ID: [id number] Dictated Date: 04/18/2017 08:54:30 Personal Coach Date: 04/19/2017 11:18:33 / jack
== END 2017-04-18 09:40 | disposition home or self-care (01) ==
LOC: ENDO 07:08
PROVIDERS: ATTEND Surgery
DX: D50.9 Iron deficiency anemia, unspecified (principal); K21.9 Gastro-esophageal reflux disease without esophagitis; K29.70 Gastritis, unspecified, without bleeding; K44.9 Diaphragmatic hernia without obstruction or gangrene; E11.9 Type 2 diabetes mellitus without complications; I10 Essential (primary) hypertension; Z79.4 Long term (current) use of insulin
CPT/HCPCS: 36415; 82962; 84703

== ENCOUNTER 2020-06-05 16:38 | Emergency (ER) | payer SELFPAY ==
[~2020-06-05] VITALS: Ht 152 cm; Wt 77.1 kg
[~2020-06-05 16:38] MED LIST changes: +BENZ-36 PO; -BENZ100C23 PO; -FLUO20CA25 PO; +FLUO20CA46 PO; +INDO50CA82 PO; +LORA10TA7 PO; +NAPR-1033 PO; +PANT40TA2 PO; -PIOG30TA26 PO; +PIOG30TA71 PO; +SUCR1TAB36 PO
[2020-06-05] MEDS ORDERED: diphenhydrAMINE 50 MG/ML INJ (BENADRYL) IM ONE (17:45)
[2020-06-05] MEDS ORDERED: KETOROLAC 60 MG/2 ML VIAL IM ONE (17:45)
[2020-06-05] MEDS ORDERED: PROCHLORPERAZINE 10 MG/2ML INJ (COMPAZINE) IM ONE (17:45)
--- NOTE | 2020-06-05 18:10 | ED Pediatric Illness ---
HPI-Pediatric Illness General Chief Complaint: Head/Cervical Problems Stated Complaint: MIGRAINE Nursing Triage Note: has had a migraine x 1 week, does not have a PCP, has been taking OTC medication that is not helping, states she has had headaches in the past but this one is worse than any previous headache Source: patient Exam Limitations: no limitations History of Present Illness Date Seen by Provider: Jun 05, 2020 Time Seen by Provider: 18:04 Initial Comments To ER with a migraine headache for one week. This is left-sided. She had nausea and vomiting. No injury. It started mildly got progressively worse. Severity: mild Presenting Symptoms: vomiting Allergies and Home Medications Allergies Coded Allergies: liraglutide (Unverified Allergy, Mild, 04/18/17) Home Medications Fluoxetine HCl 20 Mg Capsule, 20 MG PO DAILY, (Reported) Glyburide 5 Mg Tablet, 10 MG PO BID, (Reported) take 2 (5mg) tabs Indomethacin 50 Mg Capsule, 50 MG PO DAILY, (Reported) Insulin Detemir 100 Unit/1 Ml Insuln.pen, 27 UNIT SQ DAILY, (Reported) Levothyroxine Sodium 112 Mcg Capsule, 112 MCG PO DAILY, (Reported) Losartan/Hydrochlorothiazide 1 Each Tablet, 1 TAB PO BID, (Reported) Lovastatin 10 Mg Tablet, 10 MG PO DAILY, (Reported) Metformin Hcl 1,000 Mg Tablet, 1,000 MG PO BID, (Reported) Pantoprazole Sodium 40 Mg Tablet.dr, 40 MG PO DAILY Prescribed by: GISELE SOW on 04/18/17902 Pioglitazone HCl 30 Mg Tablet, 30 MG PO DAILY, (Reported) Sucralfate 1 Gm Tablet, 1 GM PO QID Prescribed by: GISELE SOW on 04/18/17902 Patient Home Medication List Home Medication List Reviewed: Yes Review of Systems Review of Systems Constitutional: see HPI EENTM: see HPI Respiratory: no symptoms reported Cardiovascular: no symptoms reported Genitourinary: no symptoms reported Musculoskeletal: no symptoms reported Skin: no symptoms reported Psychiatric/Neurological: No Symptoms Reported Endocrine: No Symptoms Reported PMH-Pediatrics Recent Foreign Travel: No Contact w/other who traveled: No Recent Infectious Disease Expo: No Hospitalization with Isolation: Denies Tetanus Booster (TDap): Unknown Seasonal Allergies: Yes HX Surgeries: Yes Hx Respiratory Disorders: No Hx Cardiovascular Disorders: Yes Hx Neurological Disorders: No Hx Genitourinary Disorders: No Hx Gastrointestinal Disorders: Yes Gastrointestinal Disorders: Gastroesophageal Reflux Hx Musculoskeletal Disorders: Yes Musculoskeletal Disorders: Chronic Back Pain Hx Endocrine Disorders: Yes Endocrine Disorders: Hypothyroidsim, Diabetes, Non-Insulin dep HX ENT Disorders: No Hx Cancer: No Hx Psychiatric Problems: No HX Skin/Integumentary Disorder: No Hx Blood Disorders: Yes (low iron level) Adverse Reaction to a Blood Tr: No Significant Family History: Heart Disease, Diabetes, Renal Disease Physical Exam-Pediatric Physical Exam Vital Signs - First Documented 06/05/20 17:08 Temp 37.2 Pulse 82 Resp 18 B/P (MAP) 112/67 (82) Pulse Ox 17 O2 Delivery Room Air Capillary Refill : Less Than 3 Seconds Height, Weight, BMI Height: 5'1.00" Weight: 181lbs. 0.0oz. [id number]; 33.00 BMI Method:Stated General Appearance: no acute distress, see HPI, active Respiratory: no respiratory distress Gastrointestinal: normal bowel sounds, non tender Extremities: normal range of motion, non-tender Neurologic/Psychiatric: alert, normal mood/affect, oriented x 3 Skin: normal color, warm/dry Progress/Results/Core Measures Results/Orders My Orders Orders - KAMILA JORDAN APRN Ketorolac Injection (Toradol Injection) (06/05/20 17:45) Prochlorperazine Injection (Compazine In (06/05/20 17:45) Diphenhydramine Injection (Benadryl Inje (06/05/20 17:45) Vital Signs/I&O 06/05/20 17:08 Temp 37.2 Pulse 82 Resp 18 B/P (MAP) 112/67 (82) Pulse Ox 17 O2 Delivery Room Air Blood Pressure Mean: 82 Departure Impression Primary Impression: Headache Qualified Codes: R51 - Headache Disposition: 01 HOME, SELF-CARE Condition: Stable Departure-Patient Inst. Decision time for Depature: 18:12 Referrals: LIZZETTE BOLAND (PCP/Family) Primary Care Physician Patient Instructions: Headache, Adult (DC) Add. Discharge Instructions: 1. Return to ER for any concerns 2. Follow-up with your doctor next week 3. All discharge instructions reviewed with patient and/or family. Voiced understanding. KAMILA JORDAN APRN Jun 05, 2020 18:10
[2020-06-05 18:14] VITALS: BP 130/80
== END 2020-06-05 18:14 | disposition home or self-care (01) ==
LOC: EDUNIT# 16:38 → ER 16:40
DX: R51 Headache (principal); K21.9 Gastro-esophageal reflux disease without esophagitis; E11.9 Type 2 diabetes mellitus without complications; E03.9 Hypothyroidism, unspecified; Z79.890 Hormone replacement therapy; Z88.8 Allergy status to other drugs, medicaments and biological substances; Z79.4 Long term (current) use of insulin
CPT/HCPCS: 99284

== ENCOUNTER → 2022-01-06 | Outpatient (CLI) | payer BC ==
[~2022-01-06] MED LIST changes: +CYCL10TA25 PO; -CYCL10TA9 PO; -FLUO20CA46 PO; +FLUO20CA48 PO; +RT-ALBUTEROL SULF 2.5 MG/3 ML PRE-MIX VIAL INH ONE
== END ==
LOC: RT 10:35
PROVIDERS: ATTEND Nurse Practitioner
DX: J45.20 Mild intermittent asthma, uncomplicated (principal)
CPT/HCPCS: 94060; 94726; 94729

== ENCOUNTER 2022-05-31 15:58 | Emergency (ER) | payer BC ==
[~2022-05-31 15:58] MED LIST changes: -RT-ALBUTEROL SULF 2.5 MG/3 ML PRE-MIX VIAL INH ONE
[2022-05-31] MEDS ORDERED: KETOROLAC 30 MG/ML VIAL IVP ONE (16:45)
[2022-05-31] MEDS ORDERED: ONDANSETRON 4 MG/2 ML (SDV) Z0FRAN IVP ONE (16:45)
[2022-05-31] MEDS ORDERED: NS IV 1000 ML 1,000 ML IV ONE (16:45)
--- NOTE | 2022-05-31 16:48 | ED Abdominal Pain ---
General Chief Complaint: Abdominal/GI Problems Stated Complaint: STOMACH PAIN, VOMITING Source of Information: Patient Exam Limitations: No Limitations History of Present Illness Date Seen by Provider: May 31, 2022 Time Seen by Provider: 16:29 Initial Comments Patient to the ER by private conveyance with chief complaint that since yes terday she has been having nausea vomiting chills but no fever. She is having pain in her right flank from her back radiating through to her right anterior abdomen. She thought maybe she had pancreatitis but she is not a drinker. She does have a history of high cholesterol. She does not have a history of kidney stones. She is not having any hematuria or dysuria. She is had her gallbladder out surgically but no other abdominal surgeries. No trauma. No rash. She has a history of diabetes, hypertension. She denies any heart history. Allergies and Home Medications Allergies Coded Allergies: liraglutide (Unverified Allergy, Mild, 04/18/17) Patient Home Medication List Home Medication List Reviewed: Yes Fluoxetine HCl (Fluoxetine HCl) 20 Mg Capsule, 20 MG PO DAILY, (Reported) Entered as Reported by: MARY RAMIREZ on 04/14/171216 Glyburide (Glyburide) 5 Mg Tablet, 10 MG PO BID, (Reported) Entered as Reported by: JOANNE MCKEE on 05/03/152138 Indomethacin (Indomethacin) 50 Mg Capsule, 50 MG PO DAILY, (Reported) Entered as Reported by: CHRIS JOHANSEN on 04/18/17 0744 Insulin Detemir (Levemir Flextouch) 100 Unit/1 Ml Insuln.pen, 27 UNIT SQ DAILY, (Reported) Entered as Reported by: MARY RAMIREZ on 04/14/171216 Levothyroxine Sodium (Tirosint) 112 Mcg Capsule, 112 MCG PO DAILY, (Reported) Entered as Reported by: JOANNE MCKEE on 05/03/152138 Loratadine (Loratadine) 10 Mg Tablet, 10 MG PO, (Reported) Entered as Reported by: CHRIS JOHANSEN on 04/18/17 0745 Losartan/Hydrochlorothiazide (Losartan-Hctz 50-12.5 Mg Tab) 1 Each Tablet, 1 TAB PO BID, (Reported) Entered as Reported by: JOANNE MCKEE on 05/03/152138 Lovastatin (Lovastatin) 10 Mg Tablet, 10 MG PO DAILY, (Reported) Entered as Reported by: JOANNE MCKEE on 05/03/152138 Metformin Hcl (Metformin Hcl) 1,000 Mg Tablet, 1,000 MG PO BID, (Reported) Entered as Reported by: JOANNE MCKEE on 05/03/152138 Pantoprazole Sodium (Protonix) 40 Mg Tablet.dr, 40 MG PO DAILY Prescribed by: GISELE SOW on 04/18/17902 Pioglitazone HCl (Pioglitazone HCl) 30 Mg Tablet, 30 MG PO DAILY, (Reported) Entered as Reported by: MARY RAMIREZ on 04/14/17 121 Sucralfate (Carafate) 1 Gm Tablet, 1 GM PO QID Prescribed by: GISELE SOW on 04/18/17902 Review of Systems Review of Systems Constitutional: No chills, No diaphoresis EENTM: No Blurred Vision, No Double Vision Respiratory: Denies Cough, Denies Shortness of Air Cardiovascular: Denies Chest Pain, Denies Lightheadedness Gastrointestinal: Denies Constipated, Denies Diarrhea, Denies Nausea Genitourinary: Denies Discharge, Denies Drainage Musculoskeletal: No back pain, No joint pain Skin: No pruritus, No rash Psychiatric/Neurological: Denies Headache, Denies Numbness All Other Systems Reviewed Negative Unless Noted: Yes Past Fzxzihr-Teuzbn-Owbbcv Hx Patient Social History Tobacco Use?: No Use of E-Cig and/or Vaping dev: No Substance use?: No Alcohol Use?: No Pt feels they are or have been: No Immunizations Up To Date Tetanus Booster (TDap): Unknown Influenza Vaccine Up-to-Date: Yes; Up-to-Date Seasonal Allergies Seasonal Allergies: Yes Past Medical History Surgery/Hospitalization HX: DM, HTN, THYROID MELLY Surgeries: Yes Gallbladder Respiratory: No Cardiac: Yes Hypertension Neurological: No Gastrointestinal: Yes Gastroesophageal Reflux Musculoskeletal: Yes Chronic Back Pain Endocrine: Yes Hypothyroidsim, Diabetes, Non-Insulin dep Cancer: No Psychosocial: No Integumentary: No Blood Disorders: Yes (low iron level) Adverse Reaction/Blood Tranf: No Family Medical History Heart Disease, Diabetes, Renal Disease Physical Exam Vital Signs Vital Signs - First Documented 05/31/22 16:39 Temp 36.8 Pulse 95 Resp 16 B/P (MAP) 135/90 (105) Capillary Refill : Height/Weight/BMI Height: 5'1.00" Weight: 181lbs. 0.0oz. 82.616689vy; 33.00 BMI Method:Stated General Appearance: WD/WN, no apparent distress HEENT: PERRL/EOMI, normal ENT inspection, pharynx normal Neck: non-tender, full range of motion, supple, normal inspection Respiratory: lungs clear, normal breath sounds, no respiratory distress, no accessory muscle use Cardiovascular: normal peripheral pulses, regular rate, rhythm Peripheral Pulses: 2+ Radial Pulses (R), 2+ Radial Pulses (L) Gastrointestinal: normal bowel sounds, soft, tenderness (Epigastric tenderness.) Extremities: no pedal edema, normal capillary refill Back: normal inspection, no vertebral tenderness, CVA tenderness (R) Neurologic/Psychiatric: alert, normal mood/affect, oriented x 3 Skin: normal color, warm/dry Progress/Results/Core Measures Results/Orders Lab Results Laboratory Tests Test 05/31/22 16:20 05/31/22 16:47 05/31/22 17:14 Range/Units White Blood Count 7.0 4.3-11.0 10^3/uL Red Blood Count 6.04 H 3.80-5.11 10^6/uL Hemoglobin 13.6 11.5-16.0 g/dL Hematocrit 44 35-52 % Mean Corpuscular Volume 73 L 80-99 fL Mean Corpuscular Hemoglobin 23 L 25-34 pg Mean Corpuscular Hemoglobin Concent 31 L 32-36 g/dL Red Cell Distribution Width 17.7 H 10.0-14.5 % Platelet Count 372 130-400 10^3/uL Mean Platelet Volume 10.9 9.0-12.2 fL Immature Granulocyte % (Auto) 0 % Neutrophils (%) (Auto) 68 42-75 % Lymphocytes (%) (Auto) 22 12-44 % Monocytes (%) (Auto) 8 0-12 % Eosinophils (%) (Auto) 1 0-10 % Basophils (%) (Auto) 1 0-10 % Neutrophils # (Auto) 4.7 1.8-7.8 10^3/uL Lymphocytes # (Auto) 1.6 1.0-4.0 10^3/uL Monocytes # (Auto) 0.6 0.0-1.0 10^3/uL Eosinophils # (Auto) 0.1 0.0-0.3 10^3/uL Basophils # (Auto) 0.1 0.0-0.1 10^3/uL Immature Granulocyte # (Auto) 0.0 0.0-0.1 10^3/uL Sodium Level 136 135-145 MMOL/L Potassium Level 3.7 3.6-5.0 MMOL/L Chloride Level 98 98-107 MMOL/L Carbon Dioxide Level 24 21-32 MMOL/L Anion Gap 14 5-14 MMOL/L Blood Urea Nitrogen 12 7-18 MG/DL Creatinine 0.79 0.60-1.30 MG/DL Estimat Glomerular Filtration Rate 90 BUN/Creatinine Ratio 15 Glucose Level 257 H 70-105 MG/DL Calcium Level 9.9 8.5-10.1 MG/DL Corrected Calcium 9.7 8.5-10.1 MG/DL Total Bilirubin 0.5 0.1-1.0 MG/DL Aspartate Amino Transf (AST/SGOT) 48 H 5-34 U/L Alanine Aminotransferase (ALT/SGPT) 107 H 0-55 U/L Alkaline Phosphatase 64 40-136 U/L Total Protein 7.5 6.4-8.2 GM/DL Albumin 4.2 3.2-4.5 GM/DL Lipase 23 8-78 U/L Urine Color YELLOW Urine Clarity CLEAR Urine pH 5.5 5-9 Urine Specific [place] 1.020 1.016-1.022 Urine Protein NEGATIVE NEGATIVE Urine Glucose (UA) 3+ H NEGATIVE Urine Ketones 2+ H NEGATIVE Urine Nitrite NEGATIVE NEGATIVE Urine Bilirubin NEGATIVE NEGATIVE Urine Urobilinogen 0.2 < = 1.0 MG/DL Urine Leukocyte Esterase NEGATIVE NEGATIVE Urine RBC (Auto) NEGATIVE NEGATIVE Urine RBC NONE /HPF Urine WBC NONE /HPF Urine Squamous Epithelial Cells 5-10 /HPF Urine Crystals NONE /LPF Urine Bacteria NEGATIVE /HPF Urine Casts NONE /LPF Urine Mucus SMALL H /LPF Urine Culture Indicated NO My Orders Orders - ZAIRE BARRY Ua Culture If Indicated (05/31/22 16:01) Ed Iv/Invasive Line Start (05/31/22 16:36) Ns Iv 1000 Ml (Sodium Chloride 0.9%) (05/31/22 16:45) Ct Abd/Pelvis Wo(Kidney Stone) (05/31/22 16:36) Ketorolac Injection (Toradol Injection) (05/31/22 16:45) Ondansetron Injection (Zofran Injectio (05/31/22 16:45) Cbc With Automated Diff (05/31/22 16:36) Comprehensive Metabolic Panel (05/31/22 16:36) Lipase (05/31/22 16:49) Medications Given in ED Current Medications Medications Dose Ordered Sig/Rajesh Route Start Time Stop Time Status Last Admin Dose Admin Ketorolac Tromethamine 30 mg ONCE ONCE IVP 05/31/22 16:45 05/31/22 16:47 DC 05/31/22 17:12 30 MG Ondansetron HCl 8 mg ONCE ONCE IVP 05/31/22 16:45 05/31/22 16:47 DC 05/31/22 17:12 8 MG Sodium Chloride 1,000 ml @ 0 mls/hr Q0M ONCE IV 05/31/22 16:45 05/31/22 16:47 DC 05/31/22 17:11 1,000 MLS/HR Vital Signs/I&O 05/31/22 16:39 Temp 36.8 Pulse 95 Resp 16 B/P (MAP) 135/90 (105) Progress Progress Note : Time: 17:[address] urine and labs are okay. Suspect she just has a pinched nerve or other issue causing her significant pain which is leading to her nausea. She is more comfortable now. We will give her some Norflex and have her follow-up with physical therapy and primary care. Diagnostic Imaging Diagonstic Imaging: CT Plain Films/CT/US/NM/MRI: abdomen, pelvis Comments [facility], [place] NAME: RADHA PACE [facility] REC#: [id number] PT STATUS: REG ER : 1970 PHYSICIAN: ZAIRE BARRY MD ADMIT DATE: 05/31/22/ER Draft Date of Exam:05/31/22 CT ABD/PELVIS WO(KIDNEY STONE) PROCEDURE: CT urinary tract, rule out kidney stone. TECHNIQUE: Multiple contiguous axial images were obtained through the abdomen and pelvis without the use of intravenous contrast. Auto Exposure Controls were utilized during the CT exam to meet ALARA standards for radiation dose reduction. INDICATION: Right flank pain and vomiting. Comparison is made with prior CT from 05/03/2015. FINDINGS: Lung bases are clear. The liver demonstrates generalized low attenuation consistent with hepatic steatosis. There is no liver mass. Gallbladder is surgically absent. There is no biliary ductal dilatation. The pancreas and spleen are unremarkable. No adrenal mass is detected. Kidneys are without calculi. No ureteral calculi or hydronephrosis is identified. Aorta is nonaneurysmal. Bowel loops are normal in caliber. There is no obstruction. The appendix is visualized in the right lower quadrant and appears unremarkable. There is no free fluid or fluid collection. The uterus and ovaries are unremarkable. Bladder is decompressed. IMPRESSION: 1. Hepatic steatosis. 2. No evidence of urinary tract calculi or obstruction. 3. No CT evidence of acute appendicitis. Dictated on workstation # [id number] Dict: 05/31/22 1726 Trans: 05/31/22 1731 [id number] Interpreted by: REYMUNDO MEI MD Electronically signed by: Reviewed: Reviewed by Me Departure Impression Primary Impression: Back pain Qualified Codes: M54.6 - Pain in thoracic spine Additional Impression: Radiculopathy Qualified Codes: M54.14 - Radiculopathy, thoracic region Disposition: 01 HOME, SELF-CARE Condition: Stable Departure-Patient Inst. Decision time for Depature: 17:54 Referrals: LIZZETTE BOLAND (PCP/Family) Primary Care Physician Patient Instructions: Radiculopathy (DC) Add. Discharge Instructions: I suspect you have a pinched nerve in your back. I would like you to take the naproxen 500 mg twice a day for least the next 2 to 4 weeks and follow-up with physical therapy. You may call for an appointment at [phone]. You can also use Tylenol 1000 mg every 8 hours needed for pain. You may use topical creams such as icy hot, Biofreeze, etc. You may use cyclobenzaprine 1 tablet every 8 hours as needed for muscle spasms in your back. This may cause drowsiness. Follow-up with your primary care doctor for continued management of your symptoms. All discharge instructions reviewed with patient and/or family. Voiced understanding. Scripts Cyclobenzaprine HCl (Cyclobenzaprine HCl) 10 Mg Tablet 10 MG PO Q8H PRN for SPASMS, #15 TAB 0 Refills Prov: ZAIRE BARRY 05/31/22 Naproxen (Naprosyn) 500 Mg Tablet 500 MG PO BID, #30 TAB 0 Refills Prov: ZAIRE BARRY 05/31/22 Work/School Note: Work Release Form Date Seen in the Emergency Department: May 31, 2022 Return to Work: Jun 01, 2022 Restrictions: Need Release from Doctor Other Restrictions Listed Below: Please excuse 05/30/22. Restrictions: Do not lift greater than 20 pounds until 06/07/2022. ZAIRE BARRY May 31, 2022 16:48
[2022-05-31 16:50] LABS: BASOPHILS # (AUTO) 0.1 10^3/uL (0.0-0.1); BASOPHILS % (AUTO) 1 % (0-10); EOSINOPHILS # (AUTO) 0.1 10^3/uL (0.0-0.3); EOSINOPHILS % (AUTO) 1 % (0-10); HEMATOCRIT 44 % (35-52); HEMOGLOBIN 13.6 g/dL (11.5-16.0); LYMPHOCYTES # (AUTO) 1.6 10^3/uL (1.0-4.0); LYMPHOCYTES % (AUTO) 22 % (12-44); MEAN CORPUSCULAR HEMOGLOBIN 23 pg (25-34); MEAN CORPUSCULAR HGB CONC 31 g/dL (32-36); MEAN CORPUSCULAR VOLUME 73 fL (80-99); MEAN PLATELET VOLUME 10.9 fL (9.0-12.2); MONOCYTES # (AUTO) 0.6 10^3/uL (0.0-1.0); MONOCYTES % (AUTO) 8 % (0-12); NEUTROPHILS # (AUTO) 4.7 10^3/uL (1.8-7.8); NEUTROPHILS % (AUTO) 68 % (42-75); PLATELET COUNT 372 10^3/uL (130-400)
[2022-05-31 16:54] LABS: ALBUMIN 4.2 GM/DL (3.2-4.5)
[2022-05-31 16:55] LABS: POTASSIUM 3.7 MMOL/L (3.6-5.0)
[2022-05-31 16:56] LABS: CALCIUM 9.9 MG/DL (8.5-10.1)
[2022-05-31 16:57] LABS: TOTAL PROTEIN 7.5 GM/DL (6.4-8.2)
[2022-05-31 16:59] LABS: BILIRUBIN,TOTAL 0.5 MG/DL (0.1-1.0)
[2022-05-31 17:01] LABS: CREATININE SERUM 0.79 MG/DL (0.60-1.30)
[2022-05-31 17:22] LABS: BILIRUBIN,URINE NEGATIVE (NEGATIVE); CLARITY,URINE CLEAR; COLOR,URINE YELLOW; GLUCOSE, URINE (UA) 3+ (NEGATIVE); KETONES,URINE 2+ (NEGATIVE); LEUKOCYTE ESTERASE ,URINE NEGATIVE (NEGATIVE); NITRITE,URINE NEGATIVE (NEGATIVE); PH,URINE 5.5 (5-9); PROTEIN,URINE NEGATIVE (NEGATIVE)
--- NOTE | 2022-05-31 17:31 | Diagnostic Imaging Report ---
PROCEDURE: CT urinary tract, rule out kidney stone. TECHNIQUE: Multiple contiguous axial images were obtained through the abdomen and pelvis without the use of intravenous contrast. Auto Exposure Controls were utilized during the CT exam to meet ALARA standards for radiation dose reduction. INDICATION: Right flank pain and vomiting. Comparison is made with prior CT from 05/03/2015. FINDINGS: Lung bases are clear. The liver demonstrates generalized low attenuation consistent with hepatic steatosis. There is no liver mass. Gallbladder is surgically absent. There is no biliary ductal dilatation. The pancreas and spleen are unremarkable. No adrenal mass is detected. Kidneys are without calculi. No ureteral calculi or hydronephrosis is identified. Aorta is nonaneurysmal. Bowel loops are normal in caliber. There is no obstruction. The appendix is visualized in the right lower quadrant and appears unremarkable. There is no free fluid or fluid collection. The uterus and ovaries are unremarkable. Bladder is decompressed. IMPRESSION: 1. Hepatic steatosis. 2. No evidence of urinary tract calculi or obstruction. 3. No CT evidence of acute appendicitis. Dictated by: Dictated on workstation # [id number]
[2022-05-31 17:40] LABS: BACTERIA,URINE NEGATIVE /HPF
[2022-05-31] MEDS ORDERED: CYCL10TA25 PO (17:56)
[2022-05-31] MEDS ORDERED: NAPR-1071 PO (17:56)
[2022-05-31] MEDS ORDERED: ORPHENADRINE 60 MG/2 ML (NORFLEX) AMP (ED ONLY) IM ONE (18:00)
[2022-05-31 18:35] VITALS: BP 132/82
== END 2022-05-31 18:35 | disposition home or self-care (01) ==
LOC: EDUNIT# 15:58 → ER 16:00
DX: M54.9 Dorsalgia, unspecified (principal); M54.10 Radiculopathy, site unspecified; R10.13 Epigastric pain; R11.2 Nausea with vomiting, unspecified; Z90.49 Acquired absence of other specified parts of digestive tract; Z28.310 Unvaccinated for COVID-19
CPT/HCPCS: 36415; 74176; 80053; 81000; 83690; 85025; 96361; 96372; 96374; 96375

== ENCOUNTER → 2023-04-21 | Outpatient (CLI) | payer BC ==
[~2023-04-21] MED LIST changes: +GADOTERATE 0.5 MMOL/ML (CLARISCAN) 15 ML VIAL IV ONE; -INSU100I29 SQ; +INSU100I30 SQ; +NAPR-1071 PO
--- NOTE | 2023-04-21 14:48 | Diagnostic Imaging Report ---
EXAMINATION: MRI of the abdomen with and without contrast. TECHNIQUE: Multiplanar, multisequence MR images of the abdomen were obtained with and without intravenous contrast. Additional 3-D MIPS MRCP images were generated at an independent workstation. HISTORY: PANCREATIC MASS COMPARISON: 05/31/2022 FINDINGS: Liver: There is mild loss of signal seen on out of phase images compatible with hepatic steatosis. Normal contour of the liver. There is no focal hepatic mass. The portal and hepatic veins are patent. Gallbladder and Bile Ducts: The gallbladder is surgically absent. There is no intrahepatic or extrahepatic bile duct dilation. There are no filling defects within the biliary tree. Pancreas: The pancreas is normal in volume, signal intensity and enhancement. There is no dilation of the main pancreatic duct. Spleen: The spleen is normal in size without focal lesion. Adrenal glands: The adrenal glands are unremarkable without focal nodule. Kidneys: The kidneys are unremarkable without hydronephrosis. Lymph Nodes: There is no suspicious lymphadenopathy. Other: There is no ascites. IMPRESSION: 1. No suspicious pancreatic lesion or ductal dilatation. 2. Hepatic steatosis. Dictated by: Dictated on workstation # [id number]
== END ==
LOC: RAD 10:56
PROVIDERS: ATTEND Nurse Practitioner Family
DX: K76.0 Fatty (change of) liver, not elsewhere classified (principal); K86.89 Other specified diseases of pancreas
CPT/HCPCS: 74183

== ENCOUNTER → 2023-07-18 | Outpatient (CLI) | payer BC ==
[~2023-07-18] MED LIST changes: -GADOTERATE 0.5 MMOL/ML (CLARISCAN) 15 ML VIAL IV ONE
--- NOTE | 2023-07-18 11:31 | Diagnostic Imaging Report ---
PROCEDURE: MRI lumbar spine. TECHNIQUE: Multiplanar, multisequence MRI of the lumbar spine was performed without contrast. INDICATION: Chronic lower back pain. COMPARISON: None FINDINGS: For the purposes of this exam, last well-formed disc space is noted the L5-S1 level. Static alignment of lumbar spine is maintained. There is no significant anterolisthesis or retrolisthesis. There is no evidence of jumped facets. Vertebral body heights are maintained. There is no acute fracture. Marrow signal is normal throughout. Intervertebral disc heights are also fairly well-maintained. Included portions of distal cord are unremarkable. Conus terminates approximately the L1-L2 level. No abnormal intrathecal filling defects are seen. Pre and paravertebral soft tissue structures are unremarkable. Axial images demonstrate the following: T12-L1 through L4-L5: There is no large disc bulge or focal protrusion. There is mild multilevel ligamentum flavum laxity and facet arthropathy, but no significant spinal canal or neural foraminal stenosis. L5-S1: There is mild broad-based posterior disc bulge asymmetric to the right. There is also mild bilateral facet arthropathy. As a result, there is minimal asymmetric narrowing of the spinal canal and right neural foramen. Left neural foramen is unremarkable. IMPRESSION: 1. Early degenerative changes at the L5-S1 level, but no significant spinal canal or neural foraminal stenosis throughout. 2. No acute fracture or dislocation. Dictated by: Dictated on workstation # [id number]
== END ==
LOC: RAD 10:06
PROVIDERS: ATTEND Physician Assistant
DX: M47.817 Spondylosis without myelopathy or radiculopathy, lumbosacral region (principal)
CPT/HCPCS: 72148

== ENCOUNTER → 2023-08-03 | Outpatient (CLI) | payer BC ==
[~2023-08-03] MED LIST changes: +HOLD METFORMIN - RECEIVED CONTRAST 20 ML VIAL IV SCH; +IOHEXOL 350 MG/ML 100 ML (OMNIPAQUE 350) VIAL IV ONE; +NS 100 ML (IVPB) BAG IV ONE
--- NOTE | 2023-08-03 09:56 | Diagnostic Imaging Report ---
PROCEDURE: CT abdomen and pelvis with and without contrast. TECHNIQUE: Precontrast acquisitions were acquired through the abdomen and pelvis. Multiple contiguous axial images were obtained through the abdomen and pelvis after the administration of intravenous contrast. Auto Exposure Controls were utilized during the CT exam to meet ALARA standards for radiation dose reduction. INDICATION: Benign neuroendocrine tumor, pancreatic mass. COMPARISON: MRI dated 04/21/[address]23 [address] CTs dated 05/31/2022 and 05/03/2015 FINDINGS: Stable elevation of the right hemidiaphragm. The visualized lung bases are clear. Cholecystectomy. The liver and spleen are unremarkable. The adrenal glands are unremarkable. 1.2 cm enhancing mass is identified within or abutting the posterior aspect of the body of the pancreas near midline. This appears unchanged from the prior examinations. In particular, this has not significantly changed since 2014, consistent with a nonaggressive process. The remainder of the pancreas is unremarkable. Stable scarring within the posterior mid right kidney. The bilateral kidneys and ureters are otherwise unremarkable. Mild scattered vascular calcifications without aneurysmal dilatation of the abdominal aorta. The appendix is unremarkable. The urinary bladder is unremarkable. The uterus and adnexal structures are unremarkable for age. Moderate amount of stool throughout the colon. No bowel obstruction or pneumatosis. No significant adenopathy, free air, or free fluid within abdomen or pelvis. Mild scattered osseous degenerative changes without acute osseous abnormality. IMPRESSION: Enhancing 1.2 cm mass lesion within the posterior aspect of the body of the pancreas appears unchanged from the prior examination. In particular, this has not significantly changed since 2014 suggesting a non-aggressive process. This does not demonstrate avid arterial enhancement, therefore, this is not felt to relate to an arterial aneurysm and more likely relates to a true solid mass lesion. Moderate amount of stool throughout the colon without bowel obstruction. Additional findings as above. Dictated by: Dictated on workstation # [id number]
== END ==
LOC: RAD 08:45
PROVIDERS: ATTEND Surgery
DX: D3A.8 Other benign neuroendocrine tumors (principal)
CPT/HCPCS: 74178